=== PATIENT | female | born 1945 | race Caucasian/White ===

== ENCOUNTER 2018-02-27 06:00 | Day surgery (SDC) | payer OTHER | END 2018-02-27 11:35 | disposition home or self-care (01) | LOC: AMB-ENDOS 06:00 | DX: D12.3 Benign neoplasm of transverse colon (principal); D12.5 Benign neoplasm of sigmoid colon; K64.8 Other hemorrhoids ==

== ENCOUNTER → 2020-05-05 | Emergency (ER) | payer OTHER ==
[~2020-05-05] VITALS: Ht 157.5 cm; Wt 65.8 kg
== END | disposition left against medical advice (07) ==
LOC: ER 13:28
DX: U07.1 COVID-19 (principal); R53.1 Weakness; E86.0 Dehydration